=== PATIENT | male | born 1965 | race Hispanic/Latino ===

== ENCOUNTER 2017-07-26 08:38 | Outpatient (CLI) | payer BC ==
--- NOTE | 2017-07-31 14:12 | Magnetic Resonance Report ---
FINAL REPORT EXAM: MR LE JOINT LT WO CON HISTORY: TEAR MENISCUS LEFT KNEE TECHNIQUE: Multiplanar, multisequence MRI of the left knee was performed without intravenous contrast. PRIORS: None. FINDINGS: Joint effusion: There is a moderate left knee joint effusion. Extensor mechanism: Intact. Menisci: There is a vertical tear through the body of the lateral meniscus Anterior and posterior cruciate ligaments: There is increased signal within the fibers of the ACL. No evidence of discrete tear. The PCL is intact and normal in signal. Medial collateral ligament and lateral collateral complex: Intact. Soft tissues: No soft tissue edema. Bone marrow signal: No marrow signal alteration. Articular cartilage: Normal thickness. IMPRESSION: 1. Moderate left knee joint effusion. 2. Lateral meniscus tear. 3. Mucinous degeneration of the ACL.
== END 2017-07-26 08:39 | disposition home or self-care (01) ==
LOC: MRI 08:38
PROVIDERS: ATTEND Orthopaedic Surgery
DX: S83.207A Unspecified tear of unspecified meniscus, current injury, left knee, initial encounter (principal); X58.XXXA Exposure to other specified factors, initial encounter; Y93.89 Activity, other specified; Y92.89 Other specified places as the place of occurrence of the external cause; Y99.8 Other external cause status
CPT/HCPCS: 73721